=== PATIENT | female | born 1960 | race Caucasian/White ===

== ENCOUNTER → 2016-09-26 | Outpatient (CLI) | payer OTHER | LOC: FIMAGING 08:05 | DX: Z12.31 Encounter for screening mammogram for malignant neoplasm of breast (principal) | CPT/HCPCS: G0202 ==

== ENCOUNTER → 2017-10-09 | Outpatient (CLI) | payer OTHER | LOC: FIMAGING 08:03 | DX: Z12.31 Encounter for screening mammogram for malignant neoplasm of breast (principal) ==

== ENCOUNTER 2018-05-03 09:38 | Emergency (ER) | payer OTHER ==
--- NOTE | 2018-05-03 09:47 | EDPHY ---
H & P Stated Complaint: rash on feet, swelling Time Seen by Provider: 05/03/18 09:43 HPI/ROS: 57-year-old female presents from [facility] for complaint bilateral foot redness and swelling of 6 days duration. She states it initially started as irritation around a fungal nail on the left great toe and then a left foot became very itchy, she states that gradually became red she began soaking her feet in multiple home remedies including tea tree oil, baking soda, vinegar and as the week went by both feet have become red, swollen with the rash being well demarcated just above ankle bilaterally. Additionally now several itchy lesions behind bilateral knees and in bilateral forearms She has noticed some blistering and crusting as well as off-white/yellowish discharge from her feet. No fevers or chills Review of systems As per HPI General no fever no chills no weakness HEENT no eye pain no eye discharge. No eye redness, no sore throat Respiratory no cough, no shortness of breath Cardiac no chest pain, positive peripheral edema GI no abdominal pain, no diarrhea, no constipation, no nausea, no vomiting no flank pain, no hematuria, no dysuria Musculoskeletal no myalgias, no joint pain Heme no easy bruising, no easy bleeding Endo no polyuria, no polydipsia Skin positive rashes, positive pruritus Neuro no syncope, no dizziness, no headaches Psych is no suicidal ideation, no homicidal ideation Source: Patient Exam Limitations: No limitations - Personal History Current Tetanus Diphtheria and Acellular Pertussis (TDAP): Yes - Medical/Surgical History Hx Asthma: No Hx Chronic Respiratory Disease: No Hx Diabetes: No Hx Cardiac Disease: No Hx Renal Disease: No Hx Cirrhosis: No Hx Alcoholism: No Hx HIV/AIDS: No Hx Splenectomy or Spleen Trauma: No Other PMH: Lap cysts removal, e coli in gut - Family History Significant Family History: No pertinent family hx - Social History Smoking Status: Never smoked Alcohol Use: None Drug Use: None - Physical Exam Exam: 57 yo F Alert and oriented in no acute distress nontoxic appearance, afebrile Atraumatic normocephalic Neck no JVD, no stridor Lungs clear to auscultation, no respiratory distress Heart regular rate and rhythm Extremities no cyanosis clubbing bilateral feet with indurated erythematous rash on tops of feet extending to just above ankle bilaterally sparing the soles some blistering, crusting posterior to knees and bilateral arms with maculopapular erythematous blanching rash Constitutional: Initial Vital Signs Temperature (C) 36.6 C 05/03/18 09:46 Heart Rate 56 L 05/03/18 09:46 Respiratory Rate 18 05/03/18 09:46 Blood Pressure 158/83 H 05/03/18 09:46 O2 Sat (%) 99 05/03/18 09:46 O2 Delivery Mode Room Air Allergies/Adverse Reactions: No Known Allergies Allergy (Unverified 09/16/14 14:13) Home Medications: Medication Instructions Recorded Clindamycin HCl [Clindamycin] 300 mg PO TID 10 Days #30 cap 05/03/18 Clotrimazole/Betamethasone Dip 45 gm TP BID 14 Days #45 cream..g. 05/03/18 [Clotrimazole-Betamethasone Crm] Mupirocin Calcium [Mupirocin] 30 gm TP BID 14 Days #30 cream..g. 05/03/18 methylPREDNISolone [Medrol Dose 1 each PO AD #1 ea 05/03/18 Osman] Medical Decision Making ED Course/Re-evaluation: Patient seen and evaluated for bilateral foot rash and swelling of 6 days duration. No fevers or chills IV established, lab sent CBC within normal limits BMP negative anion gap, negative acidosis, normal Patient given IV fluids 1 L normal saline, Benadryl 50 mg IV trip, Solu-Medrol 125 mg, famotidine 20 mg Slight improvement in maculopapular rash, no change in foot rash. Impression Multifactorial Likely initially tinea, followed by contact dermatitis secondary to home remedies, followed by secondary bacterial infection . Impression/plan I feel like your foot dilemma likely started as a fungal infection and with itching and skin breaks and multiple local soaking, spread to both feet. I believe you may have a multifactorial foot infection with likely underlying fungus, secondary bacterial infection(the blisters and yellow crusting) and some component as well of a contact dermatitis from some of the local remedies. Until you follow up with either Dermatology or your Primary Care I would like you to 1)Apply combination antifungal /steroid cream twice a day, 8a, 4pm.....Clotrimazole/Betamethsone 2) Apply the antibacterial cream twice a day as well, Noon, bedtime......Mupirocin 3) Take tapering steroid dose pack as directed beginning tomorrow....Medrol Dosepack 4) Take antibiotics 3 times a day for 10 days....Clindamycin 5) Take 25-50 mg of diphenhydramine(aka Benadryl) every 6 hours as needed for itching, be sure to drink plenty of liquids If there is a dramatic turn for the worse, such as high fever or spreading rash , please return to the Emergency Department. It is possible that if you have a dramatic improvement , your follow up provider may be willing to stop some of the above interventions. Differential Diagnosis: Differential diagnosis considered but not limited to: cellulitis, tinea, contact dermatitis, vasculitis, erysipelas, impetigo, uritcria - Data Points Laboratory Results: 05/03/18 10:58 POC Sodium 141 mEq/L mEq/L (135-145) POC Potassium 3.6 mEq/L mEq/L (3.3-5.0) POC Chloride 102.0 mEq/L mEq/L (97-110) POC Total CO2 27 mEq/L mEq/L (22-31) POC BUN 10 mg/dL mg/dL (7-23) POC Creatinine 0.6 mg/dL mg/dL (0.6-1.0) POC Glucose 85 mg/dL mg/dL (70-100) POC Calcium 9.5 mg/dL mg/dL (8.5-10.4) Medications Given: Discontinued Medications Diphenhydramine HCl (Benadryl Injection) 50 mg IVP EDNOW ONE Stop: 05/03/18 10:39 Last Admin: 05/03/18 10:55 Dose: 50 mg Famotidine (Pepcid) 20 mg IVP EDNOW ONE Stop: 05/03/18 10:41 Last Admin: 05/03/18 10:54 Dose: 20 mg Methylprednisolone Sodium Succinate (Solu-Medrol) 125 mg IVP EDNOW ONE Stop: 05/03/18 10:40 Last Admin: 05/03/18 10:54 Dose: 125 mg Point of Care Test Results: CBC CBC Collection Date 05/03/18 CBC Collection Time 10:39 WBC 4.4 RBC 4.73 HGB 14.3 HCT 42.2 PLT 359 Neut # 2.4 Neut 54.6 LYMPH # 1.5 LYMPH 33.1 Other WBC # 0.5 Other WBC 12.3 MCV 89.2 Chemistry 05/03/18 10:58 POC Sodium 141 mEq/L mEq/L (135-145) POC Potassium 3.6 mEq/L mEq/L (3.3-5.0) POC Chloride 102.0 mEq/L mEq/L (97-110) POC Total CO2 27 mEq/L mEq/L (22-31) POC BUN 10 mg/dL mg/dL (7-23) POC Creatinine 0.6 mg/dL mg/dL (0.6-1.0) POC Glucose 85 mg/dL mg/dL (70-100) POC Calcium 9.5 mg/dL mg/dL (8.5-10.4) Departure - Departure Disposition: Home, Routine, Self-Care Clinical Impression: Tinea pedis, Impetigo any site, Urticaria Condition: Good Instructions: Impetigo (ED), Urticaria (ED), Skin Yeast Infection (ED) Additional Instructions: I feel like your foot dilemma likely started as a fungal infection and with itching and skin breaks and multiple local soaking, spread to both feet. I believe you may have a multifactorial foot infection with likely underlying fungus, secondary bacterial infection(the blisters and yellow crusting) and some component as well of a contact dermatitis from some of the local remedies. Until you follow up with either Dermatology or your Primary Care I would like you to 1)Apply combination antifungal /steroid cream twice a day, 8a, 4pm.....Clotrimazole/Betamethsone 2) Apply the antibacterial cream twice a day as well, Noon, bedtime......Mupirocin 3) Take tapering steroid dose pack as directed beginning tomorrow....Medrol Dosepack 4) Take antibiotics 3 times a day for 10 days....Clindamycin 5) Take 25-50 mg of diphenhydramine(aka Benadryl) every 6 hours as needed for itching, be sure to drink plenty of liquids If there is a dramatic turn for the worse, such as high fever or spreading rash , please return to the Emergency Department. It is possible that if you have a dramatic improvement , your follow up provider may be willing to stop some of the above interventions. Referrals: NONE *PRIMARY CARE P,. [Primary Care Provider] - As per Instructions Arturo Matthew MD [Medical Doctor] - As per Instructions Prescriptions: Clindamycin HCl [Clindamycin] 300 mg PO TID 10 Days #30 cap Clotrimazole/Betamethasone Dip [Clotrimazole-Betamethasone Crm] 45 gm TP BID 14 Days #45 cream..g. methylPREDNISolone [Medrol Dose Osman] 1 each PO AD #1 ea Mupirocin Calcium [Mupirocin] 30 gm TP BID 14 Days #30 cream..g.
[2018-05-03] MEDS ORDERED: methylPREDNISolone SOD SUCC 125 MG/2 ML VIAL IVP ONE (10:39)
[2018-05-03] MEDS ORDERED: FAMOTIDINE 20 MG/2 ML SDV IVP ONE (10:40)
[2018-05-03 12:42] VITALS: BP 148/81
== END 2018-05-03 12:41 | disposition home or self-care (01) ==
LOC: CED 09:38
DX: L08.89 Other specified local infections of the skin and subcutaneous tissue (principal)
CPT/HCPCS: 80048-PO; 96374; J1200; J2930

== ENCOUNTER → 2018-10-26 | Outpatient (CLI) | payer OTHER | LOC: FIMAGING 16:09 | PROVIDERS: ATTEND Nurse Practitioner Women's Health | DX: Z12.31 Encounter for screening mammogram for malignant neoplasm of breast (principal) ==